=== PATIENT | male | born 1970 | race Caucasian/White ===

== ENCOUNTER 2018-07-22 13:20 | Emergency (ER) | payer BC ==
[2018-07-22 13:52] LABS: BASO % 0.9 % (0-6); EOS % 1.1 % (0-6); GRAN % 53.6 % (47-80); HEMATOCRIT 45.7 % (42.0-52.0); HEMOGLOBIN 15.6 gm/dl (14.0-18.0); LYMPH % 36.1 % (16-45); MEAN CELL VOLUME 82.5 fl (81-97); MEAN CORPUSCULAR HEMOGLOBIN 28.2 pg (27-33); MEAN CORPUSCULAR HGB CONC 34.1 g/dl (32-36); MONO % 8.3 % (0-9); PLATELET COUNT 229 K/uL (130-400); RED BLOOD COUNT 5.54 M/uL (4.40-5.70); WHITE BLOOD COUNT W/O DIFF 8.2 K/uL (4.2-12.2)
--- NOTE | 2018-07-22 13:55 | Emergency Department Record ---
History of Present Illness - General Chief Complaint: Numbness Stated Complaint: LT HAND/FACE NUMBNESS Time Seen by Provider: 07/22/18 13:34 Source: Patient, Family Mode of Arrival: Ambulatory Limitations: No limitations - History of Present Illness Initial Comments: The patient is here due to the acute onset of R arm and face numbness and weakness about an hour prior to presenting to the ER. He did have a facial droop and could not speak normally. Due to those facts his brought him directly to the ER. Presently his symptoms are 95% improved and his arm and face weakness and numbness have resolved. He does have risk factors of DB, HTN, and tobacco use. Onset/Timin -: Hour(s) Location: Right arm, Right face, Speech History of same: No Place: Home Severity: Mild Quality: Improving, Numb Improves With: None Worsens With: None On Anticoagulants: No Context: Sudden onset - [place] Coma Scale Eye Response: (4) Open spontaneously Motor Response: (6) Obeys commands Verbal Response: (5) Oriented Nidia Total: 15 - Symptoms of Stroke Onset of Symptoms Date: 07/22/18 Onset of Symptoms Time: 12:30 Symptoms of stroke: Numbness, Slurred Speech - Related Data Allergies/Adverse Reactions: Allergies Allergy/AdvReac Type Severity Reaction Status Date / Time No Known Drug Allergies Allergy Verified 07/22/18 13:25 Travel Screening - Travel/Exposure Within Last 30 Days Have you traveled within the last 30 days?: No Review of Systems Constitutional: Denies: Chills, Fever Eyes: Denies: Eye discharge ENT: Denies: Congestion Respiratory: Denies: Dyspnea Cardiovascular: Denies: Chest pain Endocrine: Denies: Fatigue Gastrointestinal: Denies: Abdominal pain Genitourinary: Denies: Dysuria Musculoskeletal: Denies: Arthralgia Skin: Denies: Bruising Past Medical History - SOCIAL HISTORY Smoking Status: Never smoker Alcohol Use: Occasional Drug Use: None - RESPIRATORY Hx Respiratory Disorders: Yes Hx COPD: Yes - CARDIOVASCULAR Hx Cardio Disorders: Yes Hx Hypertension: Yes - NEURO Hx Neuro Disorders: No - GI Hx GI Disorders: No - Hx Genitourinary Disorders: No - ENDOCRINE Hx Endocrine Disorders: Yes Hx Diabetes: Yes (DM2) - MUSCULOSKELETAL Hx Musculoskeletal Disorders: No - HEMATOLOGY/ONCOLOGY Hx Hematology/Oncology Disorders: No Family Medical History Any Significant Family History?: Yes Hx Stroke: Father Physical Exam - General General Appearance: Alert, Oriented x3, Cooperative, No acute distress - Head Head exam: Atraumatic, Normocephalic, Normal inspection - Eye Eye exam: Normal appearance, PERRL, EOMI - ENT Throat exam: Normal inspection. negative: Tonsillar erythema, Tonsillar exudate - Neck Neck exam: Normal inspection, Full ROM. negative: Tenderness - Respiratory Respiratory exam: Normal lung sounds bilaterally. negative: Respiratory distress - Cardiovascular Cardiovascular Exam: Regular rate, Normal rhythm, Normal heart sounds - GI/Abdominal GI/Abdominal exam: Soft, Normal bowel sounds. negative: Tenderness - Extremities Extremities exam: Normal inspection, Full ROM, Normal capillary refill. negative: Tenderness - Neurological Neurological exam: Alert, CN II-XII intact, Normal gait. negative: Abnormal gait, Altered, Motor sensory deficit, Oriented X3 - Psychiatric Psychiatric exam: negative: Anxious Course Vital Signs 07/22/18 13:23 Temperature 98.4 F Pulse Rate 110 H Respiratory 20 Rate Blood Pressure 179/122 Pulse Ox 97 - Reevaluation(s) Reevaluation #1: The patient is doing better at this time and is still normal neurologically. He is speaking clearly and has no arm or leg numbness or weakness. His head CT does not demonstrate any acute changes and his BP is improved. Due to the clear need for further workup I did discuss the case with Dr. Valle at [facility] who is carbon accountant for the stroke team and he does accept the patient in transfer to the ER. I then did discuss the case with Dr. Tabor in the ER and she does accept the patient in transfer. 07/22/18 14:18 Reevaluation #2: The patient is doing very well at this time. He is still neurologically intact and waiting on discharge. 07/22/18 14:44 Medical Decision Making - Data Complexity MDM Data: Labs Ordered and/or Reviewed, X-Ray Ordered and/or Reviewed, EKG Ordered and/or Reviewed - Lab Data Result diagrams: 07/22/18 13:33 07/22/18 13:33 Lab Results 07/22/18 Range/Units 13:33 WBC 8.2 (4.2-12.2) K/uL RBC 5.54 (4.40-5.70) M/uL Hgb 15.6 (14.0-18.0) gm/dl Hct 45.7 (42.0-52.0) % MCV 82.5 (81-97) fl MCH 28.2 (27-33) pg MCHC 34.1 (32-36) g/dl RDW 13.0 (11.5-14.5) % Plt Count 229 (130-400) K/uL MPV 12.0 H (7.4-10.4) fl Gran % 53.6 (47-80) % Lymphocytes % 36.1 (16-45) % Monocytes % 8.3 (0-9) % Eosinophils % 1.1 (0-6) % Basophils % 0.9 (0-6) % - EKG Data -: EKG Interpreted by Me (LVH with repolarization abnormalities) - Radiology Data Radiology results: Report reviewed (Head CT: Old lacunar infarcts L frontal lobe in the white matter but neg for acute changes.) Disposition Disposition: Transfer Clinical Impression: TIA (transient ischemic attack) Disposition: Acute Care Hospital Transfer Transfer To: [facility] Reason For Transfer: Stroke team Accepting Physician: Karla Time Discussed w/Accepting Physician: 14:21 Condition: (2) Stable Forms: Patient Portal Access Time of Disposition: 14:22 Quality - Quality Measures Quality Measures: N/A - Blood Pressure Screening View Details: Yes Does Patient Have Any of the Following: Active Dx of HTN Blood Pressure Classification: Hypertensive Reading Systolic Measurement: 179 Diastolic Measurement: 122 Screening for High Blood Pressure: Patient Exclusion, Hx of HTN [G9744]
[2018-07-22 14:02] LABS: BLOOD UREA NITROGEN 15 mg/dL (6-20); CREATININE 0.8 mg/dL (0.7-1.2); EST GLOMERULAR FILTRATION RATE > 60 mL/min
[2018-07-22 14:05] LABS: GLUCOSE,RANDOM 346 mg/dL (74-109); INR 1.1; PARTIAL THROMBOPLASTIN TIME 24.9 SECONDS (24.5-39.1); PROTHROMBIN TIME (PATIENT) 10.7 SECONDS (9.5-12.1)
[2018-07-22 14:07] LABS: ALB/GLOB RATIO 1.4 (1.1-1.8); ALBUMIN 4.1 g/dL (4.0-5.0); ALKALINE PHOSPHATASE 82 U/L (55-149); ALT/SGPT 30 U/L (<41); AST/SGOT 14 U/L (10.0-50.0)
[2018-07-22] MEDS ORDERED: ASPIRIN 325 MG TABLET PO ONE (14:14)
--- NOTE | 2018-07-23 09:01 | CT SCAN REPORT ---
EXAM: NONCONTRAST CT OF THE HEAD HISTORY: RIGHT UPPER EXTREMITY WEAKNESS AND RIGHT FACIAL DROOP. TECHNIQUE: Noncontrast CT of the head was obtained. Comparison: None. FINDINGS: Focal hypodensity in the left frontal lobe periventricular white matter suggesting lacunar infarction. No other focal parenchymal abnormalities are detected. No midline shift, mass effect, or abnormal intra or extraaxial fluid collection. No focal mass or intracranial hemorrhage is detected. The ventricle sizes are within normal limits. The basal cisterns do not appear effaced. The visualized paranasal sinuses are clear with the exception of small polyps or retention cysts in the left maxillary sinus. No evidence of displaced calvarial fracture. IMPRESSION: 1. FINDINGS SUGGESTIVE OF AGE INDETERMINATE LEFT FRONTAL LOBE PERIVENTRICULAR LACUNAR INFARCTIONS. 2. NO OTHER ACUTE INTRACRANIAL FINDINGS. JOB NUMBER: [id number] [facility]
== END 2018-07-22 15:09 | disposition short-term general hospital (02) ==
LOC: ER 13:20
DX: G45.9 Transient cerebral ischemic attack, unspecified (principal); E11.9 Type 2 diabetes mellitus without complications; I10 Essential (primary) hypertension; J44.9 Chronic obstructive pulmonary disease, unspecified; F17.210 Nicotine dependence, cigarettes, uncomplicated
CPT/HCPCS: 70450; 80053; 84484; 85025; 85610; 85730; 93005; 93010; 99285